=== PATIENT | male | born 1995 | race Caucasian/White ===

== ENCOUNTER → 2019-01-24 | Outpatient (CLI) | payer SELFPAY ==
[~2019-01-24] MED LIST: TRAM50TA2 PO
[2019-01-24 17:42] LABS: BASOPHILS # (AUTO) 0.1 10^3/uL (0.0-0.1); BASOPHILS % (AUTO) 1 % (0-10); EOSINOPHILS # (AUTO) 0.1 10^3/uL (0.0-0.3); EOSINOPHILS % (AUTO) 1 % (0-10); HEMATOCRIT 42 % (40-54); HEMOGLOBIN 14.3 G/DL (13.3-17.7); LYMPHOCYTES # (AUTO) 3.8 X 10^3 (1.0-4.0); LYMPHOCYTES % (AUTO) 29 % (12-44); MEAN CORPUSCULAR HEMOGLOBIN 31 PG (25-34); MEAN CORPUSCULAR HGB CONC 35 G/DL (32-36); MEAN CORPUSCULAR VOLUME 89 FL (80-99); MEAN PLATELET VOLUME 9.2 FL (7.4-10.4); MONOCYTES # (AUTO) 1.2 X 10^3 (0.0-1.0); MONOCYTES % (AUTO) 10 % (0-12); NEUTROPHILS # (AUTO) 7.7 X 10^3 (1.8-7.8); NEUTROPHILS % (AUTO) 60 % (42-75); PLATELET COUNT 238 10^3/uL (130-400); RED CELL DISTRIBUTION WIDTH 11.9 % (10.0-14.5); WHITE BLOOD COUNT 12.8 10^3/uL (4.3-11.0)
[2019-01-24 18:07] LABS: ALANINE AMINOTRANSFERASE 15 U/L (0-55); ALBUMIN 4.2 GM/DL (3.2-4.5); ALKALINE PHOSPHATASE 47 U/L (40-136); BILIRUBIN,TOTAL 0.5 MG/DL (0.1-1.0); BUN/CREATININE RATIO 12; CALCIUM 8.3 MG/DL (8.5-10.1); CARBON DIOXIDE 21 MMOL/L (21-32); CHLORIDE 107 MMOL/L (98-107); CREATININE SERUM 1.08 MG/DL (0.60-1.30); GFR ESTIMATED > 60; GLUCOSE 102 MG/DL (70-105); POTASSIUM 4.2 MMOL/L (3.6-5.0); SODIUM 138 MMOL/L (135-145); TOTAL PROTEIN 6.7 GM/DL (6.4-8.2)
== END ==
LOC: LAB 17:09
PROVIDERS: ATTEND Nurse Practitioner Family
DX: J11.89 Influenza due to unidentified influenza virus with other manifestations (principal)
CPT/HCPCS: 36415; 80053; 85025